=== PATIENT | male | born 1965 | race Two or more races ===

== ENCOUNTER 2019-07-02 09:04 | Emergency (ER) | payer BC, OTHER ==
--- NOTE | 2019-07-02 10:25 | ED ---
Lower Extremity - HPI Summary HPI Summary: This patient is a 53 year old male presenting to [facility] with a chief complaint of LLE pain. He states yesterday he woke up with muscle pain to back of his left knee and the pain has worsened since then. He states the pain is worse when he stretches his leg. The patient states he was recently in long car ride back from [facility]. He states he has taken lidocaine pads for the pain but has not taking anything PO. He states he has been putting more stress on his knee than before because he has been carrying around his child. He denies any injury or trauma to the extremity. He rates his pain 9/10 in severity. - History of Current Complaint Chief Complaint: EDExtremityLower Stated Complaint: LEFT KNEE PAIN PER PT Time Seen by Provider: 07/02/19 09:49 Hx Obtained From: Patient Onset of Pain: Days Onset/Duration: Days Pain Intensity: 9 Pain Scale Used: 0-10 Numeric Timing: Constant - Allergies/Home Medications Allergies/Adverse Reactions: Allergies Allergy/AdvReac Type Severity Reaction Status Date / Time No Known Allergies Allergy Verified 07/02/19 09:09 PMH/Surg Hx/FS Hx/Imm Hx Cardiovascular History: Denies: Hx Atrial Fibrillation EENT History: Denies: Hx Deafness Infectious Disease History: No Infectious Disease History: Denies: Traveled Outside the [place] in Last 30 Days - Family History Known Family History: Negative: Seizure Disorder - Social History Alcohol Use: Occasionally Substance Use Type: Reports: None Smoking Status (MU): Former Smoker Review of Systems Negative: Fever Positive: Other - Pain behind left knee All Other Systems Reviewed And Are Negative: Yes Physical Exam - Summary Physical Exam Summary: Constitutional: Well-developed, Well-nourished, Alert. (-) Distressed Skin: Warm, Dry HENT: Normocephalic; Atraumatic Eyes: Conjunctiva normal Neck: Musculoskeletal ROM normal neck. (-) JVD, (-) Stridor, (-) Nuchal rigidity Cardio: Rhythm regular, rate normal, Heart sounds normal; Intact distal pulses; Radial pulses are 2+ and symmetric. (-) Murmur Pulmonary/Chest wall: Effort normal. (-) Respiratory distress, (-) Wheezes, (-) Rales Abd: Soft, (-) tenderness, (-) Distension, (-) Guarding, (-) Rebound Musculoskeletal: (-) Edema. TTP popliteal fossa. 2+ DP pulses. Pain w knee flexion (full ROM), pain with active extension. Neg anterior drawer sign. No erythema. Lymph: (-) Cervical adenopathy Neuro: Alert, Oriented x3 Psych: Mood and affect Normal Triage Information Reviewed: Yes Vital Signs On Initial Exam: Initial Vitals Temp Pulse Resp BP Pulse Ox 98.8 F 112 16 105/88 96 07/02/19 09:09 07/02/19 09:09 07/02/19 09:09 07/02/19 09:09 07/02/19 09:09 Vital Signs Reviewed: Yes Procedures - Sedation Patient Received Moderate/Deep Sedation with Procedure: No Diagnostics - Vital Signs Vital Signs Temp Pulse Resp BP Pulse Ox 07/02/19 09:09 98.8 F 112 16 105/88 96 - Laboratory Lab Statement: Any lab studies that have been ordered have been reviewed, and results considered in the medical decision making process. - Ultrasound No standard instances Ultrasound Interpretation Completed By: Radiologist Summary of Ultrasound Findings: Venous Doppler Study: No evidence for DVT. ED Provider has reviewed this report. Re-Evaluation - Re-Evaluation 10:45 Change: Improved Lower Extremity Course/Dx - Course Course Of Treatment: 53 y/o male p/w L posterior knee pain. - No hx DVT, risk factor - long trips. DVT US neg. - no fevers, e/o joint effusion, erythema. Has full ROM knee do not suspect septic joint. - no known trauma. D/w patient unclear cause of pain, could have strain or meniscal/ligamentous tear/injury. Given nando wrap, motrin, PRN ortho follow up. Ambulated in ED - Diagnoses Provider Diagnoses: Left knee pain Discharge ED - Sign-Out/Discharge Documenting (check all that apply): Patient Departure - Discharge - Discharge Plan Condition: Stable Disposition: HOME Patient Education Materials: Leg Pain (ED) Referrals: [facility] Orth[facility] [Provider Group] Additional Instructions: You were seen in the emergency department for your left lower extremity pain. Your ultrasound did not show any evidence of blood clots. You can try motrin 800 mg for pain every 8 hours. Please follow up with your primary care doctor in the next 2-3 days and return to the emergency department for worsening pain, redness or swelling of knee, or concerning symptoms. It was a pleasure taking care of you today - Billing Disposition and Condition Condition: STABLE Disposition: Home - Attestation Statements Document Initiated by Darylibrosina: Yes Documenting Scribe: Delta Hurtado Provider For Whom Trevor is Documenting (Include Credential): Hannah Deleon MD Scribe Attestation: IDelta, scribed for Hannah Deleon MD on 07/02/19 at 1124. Scribe Documentation Reviewed: Yes Provider Attestation: The documentation as recorded by the Delta abbott accurately reflects the service I personally performed and the decisions made by me, Hannah Deleon MD Status of Scribe Document: Viewed
[2019-07-02] MEDS ORDERED: Ibuprofen TAB* 600 MG PO ONE (10:41)
[2019-07-02 11:28] VITALS: BP 124/80
== END 2019-07-02 10:47 | disposition home or self-care (01) ==
LOC: ED 09:04
DX: M25.562 Pain in left knee (principal); Z87.891 Personal history of nicotine dependence
CPT/HCPCS: 99282; A9270-GY